=== PATIENT | female | born 1945 | race Caucasian/White ===

== ENCOUNTER 2017-08-05 05:32 | Emergency (ER) | payer MEDICARE ==
[~2017-08-05] VITALS: Ht 167.6 cm; Wt 114.8 kg
[~2017-08-05 05:32] MED LIST: MECL-111 PO; METO25TA6 PO
[2017-08-05 06:26] LABS: BASOPHILS % (AUTO) 0.2 % (0-1); EOSINOPHILS # (AUTO) 0.2 X10'3 (0-0.9); EOSINOPHILS % (AUTO) 3.6 % (0-6); HEMATOCRIT 39.2 % (35.0-45.0); HEMOGLOBIN 13.3 g/dl (12.0-16.0); LYMPHOCYTES # (AUTO) 1.5 X10'3 (1.1-4.8); LYMPHOCYTES % (AUTO) 22.4 % (21-51); MEAN CORPUSCULAR HEMOGLOBIN 31.1 PG (27.0-31.0); MEAN CORPUSCULAR VOLUME 91.5 FL (78-98); MEAN PLATELET VOLUME 9.6 FL (7.4-10.4); MONOCYTES # (AUTO) 0.4 X10'3 (0-0.9); MONOCYTES % (AUTO) 5.9 % (2-12); NEUTROPHILS # (AUTO) 4.7 X10'3 (1.8-7.7); NEUTROPHILS % (AUTO) 67.9 % (42-75); PLATELET COUNT 162 X10'3 (140-440); RED BLOOD COUNT 4.29 X10'6 (4.20-5.60); RED CELL DISTRIBUTION WIDTH 14.2 % (11.5-14.5); WHITE BLOOD COUNT 6.9 X10'3 (4.5-11.0)
[2017-08-05 06:32] LABS: PARTIAL THROMBOPLASTIN TIME 26 SECONDS (22-32); PROTHROMBIN TIME 10.5 SECONDS (9.0-12.0)
[2017-08-05 06:51] LABS: ALANINE AMINOTRANSFERASE 26 U/L (12-78); ALBUMIN 3.6 G/DL (3.4-5.0); ALBUMIN/GLOBULIN RATIO 0.9 (1.1-1.5); ALKALINE PHOSPHATASE 81 IU/L (46-116); ANION GAP 11 (8-16); ASPARTATE AMINO TRANSFERASE 16 U/L (10-37); BILIRUBIN,TOTAL 0.4 MG/DL (0.1-1.0); CALCIUM 9.5 MG/DL (8.5-10.1); CHLORIDE 105 MMOL/L (99-107); CREATININE 0.77 MG/DL (0.40-0.90); GLUCOSE 136 MG/DL (70-104); POTASSIUM 4.1 MMOL/L (3.5-5.1); SODIUM 142 MMOL/L (135-145); TOTAL CARBON DIOXIDE 26.1 MMOL/L (24-32); TOTAL PROTEIN 7.4 G/DL (6.4-8.2); eGFR 74 ML/MIN
[2017-08-05 06:57] LABS: BLOOD UREA NITROGEN 17 MG/DL (7-18); BUN/CREATININE RATIO 22.1 (6.6-38.0)
[2017-08-05] MEDS ORDERED: famotidine/PF 10 mg/ml inj IV ONE (07:20)
[2017-08-05 08:38] VITALS: BP 145/79
== END 2017-08-05 08:40 | disposition home or self-care (01) ==
LOC: ER 05:33
DX: R00.2 Palpitations (principal); R07.89 Other chest pain; R10.13 Epigastric pain; I48.91 Unspecified atrial fibrillation; I10 Essential (primary) hypertension; E11.9 Type 2 diabetes mellitus without complications; Z90.49 Acquired absence of other specified parts of digestive tract; Z87.891 Personal history of nicotine dependence; Z88.2 Allergy status to sulfonamides; Z91.018 Allergy to other foods; Z79.899 Other long term (current) drug therapy
CPT/HCPCS: 36415; 71045; 80053; 84484; 85025; 85610; 85730; 93005; 96374; 99285; A6258; J3490

== ENCOUNTER 2019-07-06 08:31 | Inpatient (IN) | payer MEDICARE ==
[~2019-07-06] VITALS: Ht 167.6 cm; Wt 138.6 kg
[~2019-07-06 08:31] MED LIST changes: +CEPH-571 PO; +FURO-150 PO; -MECL-111 PO; +MECL-159 PO
[2019-07-06 09:52] LABS: BASOPHILS % (AUTO) 0.6 % (0-1); EOSINOPHILS # (AUTO) 0.1 X10'3 (0-0.9); EOSINOPHILS % (AUTO) 1.9 % (0-6); HEMATOCRIT 38.8 % (35.0-45.0); HEMOGLOBIN 12.6 g/dl (12.0-16.0); LYMPHOCYTES # (AUTO) 1.3 X10'3 (1.1-4.8); LYMPHOCYTES % (AUTO) 17.4 % (21-51); MEAN CORPUSCULAR HEMOGLOBIN 30.7 PG (27.0-31.0); MEAN CORPUSCULAR HGB CONC 32.5 g/dL (33.0-36.5); MEAN CORPUSCULAR VOLUME 94.5 FL (78-98); MEAN PLATELET VOLUME 9.7 FL (7.4-10.4); MONOCYTES # (AUTO) 0.4 X10'3 (0-0.9); MONOCYTES % (AUTO) 5.7 % (2-12); NEUTROPHILS # (AUTO) 5.5 X10'3 (1.8-7.7); NEUTROPHILS % (AUTO) 74.4 % (42-75); PLATELET COUNT 163 X10'3 (140-440); RED BLOOD COUNT 4.11 X10'6 (4.20-5.60); RED CELL DISTRIBUTION WIDTH 14.6 % (11.5-14.5); WHITE BLOOD COUNT 7.4 X10'3 (4.5-11.0)
[2019-07-06 10:09] LABS: ALANINE AMINOTRANSFERASE 25 U/L (12-78); ALBUMIN 3.7 G/DL (3.4-5.0); ALBUMIN/GLOBULIN RATIO 1.1 (1.1-1.5); ALKALINE PHOSPHATASE 86 IU/L (46-116); ANION GAP 7 (8-16); ASPARTATE AMINO TRANSFERASE 19 U/L (10-37); BILIRUBIN,TOTAL 0.4 MG/DL (0.1-1.0); BLOOD UREA NITROGEN 15 MG/DL (7-18); CALCIUM 9.1 MG/DL (8.5-10.1); CHLORIDE 105 MMOL/L (99-107); CREATININE 0.79 MG/DL (0.40-0.90); GLUCOSE 134 MG/DL (70-104); POTASSIUM 4.5 MMOL/L (3.5-5.1); SODIUM 140 MMOL/L (135-145); TOTAL CARBON DIOXIDE 28.1 MMOL/L (24-32); TOTAL PROTEIN 7.2 G/DL (6.4-8.2); eGFR 71 ML/MIN
[2019-07-06] MEDS ORDERED: normal saline 1000ml 1,000 ML IV SCH (11:09)
[2019-07-06] MEDS ORDERED: metoprolol tartrate 1mg/ml inj IV PRN (11:10)
[2019-07-06] MEDS ORDERED: aminophylline 250mg/10ml inj. IV PRN (11:10)
[2019-07-06] MEDS ORDERED: regadenoson 0.4mg/5ml syringe IV PRN (11:10)
[2019-07-06] MEDS ORDERED: magnesium hydroxide 30ml (MOM) UD suspension PO PRN (11:10)
[2019-07-06] MEDS ORDERED: nitroGLYCERIN 0.4mg SUBLingual tab SL PRN (11:10)
[2019-07-06] MEDS ORDERED: mag hydrox/Alum hydrox/simeth 30ml oral suspension PO PRN (11:10)
[2019-07-06] MEDS ORDERED: magnesium 2GM in 50ml NS 50 ML IV PRN (11:10)
[2019-07-06] MEDS ORDERED: morphine 2 MG/ML inj. syringe IV PRN ×2 (11:10)
[2019-07-06] MEDS ORDERED: acetaminophen 325mg tablet PO PRN (11:10)
[2019-07-06] MEDS ORDERED: potassium Cl 20 mEq SR tablet PO PRN ×2 (11:10)
[2019-07-06] MEDS ORDERED: bisacodyl 10mg suppository rectal RC PRN (11:10)
[2019-07-06] MEDS ORDERED: metoclopramide 5 mg/ml inj IV PRN (11:10)
[2019-07-06] MEDS ORDERED: potassium CL 10mEq/100ml bag 100 ML IV PRN ×2 (11:10)
[2019-07-06] MEDS ORDERED: ondansetron/PF 4mg/2ml inj IV PRN (11:10)
[2019-07-06] MEDS ORDERED: magnesium 4gm in 100ml NS 100 ML IV PRN (11:10)
[2019-07-06] MEDS ORDERED: magnesium Cl slow-release 64mg tablet PO PRN (11:10)
[2019-07-06] MEDS ORDERED: BENA10TA74 PO (11:25)
[2019-07-06 11:39] LABS: PHOSPHORUS 3.5 MG/DL (2.3-4.5)
[2019-07-06 13:30] VITALS: BP 153/78
[2019-07-06 15:00] VITALS: BP 135/68
--- NOTE | 2019-07-06 17:35 | NUR ---
Arrived from ED at 1330. Pt. is asymptomatic for pain and for chest pain.
[2019-07-06 19:00] VITALS: BP 135/61
[2019-07-06] MEDS: K and/or MAG REPLACEMENT MC SCH (20:00)
[2019-07-06] MEDS ORDERED: temazepam 15mg capsule PO PRN (21:00)
[2019-07-06] MEDS: furosemide 40mg/4ml inj IV SCH (21:05)
[2019-07-06] MEDS: heparin, porcine 5000 units/ml vial SQ SCH (21:06)
[2019-07-07] VITALS (13 sets, daily range): BP systolic 107–161; BP diastolic 58–88
[2019-07-07 06:11] LABS: HEMATOCRIT 37.8 % (35.0-45.0); HEMOGLOBIN 12.4 g/dl (12.0-16.0); MEAN CORPUSCULAR HEMOGLOBIN 30.8 PG (27.0-31.0); MEAN CORPUSCULAR HGB CONC 32.8 g/dL (33.0-36.5); MEAN CORPUSCULAR VOLUME 93.7 FL (78-98); MEAN PLATELET VOLUME 9.7 FL (7.4-10.4); PLATELET COUNT 158 X10'3 (140-440); RED BLOOD COUNT 4.04 X10'6 (4.20-5.60); RED CELL DISTRIBUTION WIDTH 14.4 % (11.5-14.5)
[2019-07-07 06:17] LABS: ALBUMIN 3.5 G/DL (3.4-5.0); ANION GAP 9 (8-16); BLOOD UREA NITROGEN 16 MG/DL (7-18); CHLORIDE 105 MMOL/L (99-107); CHOL/HDL RATIO 4.7 (0.00-4.99); CHOLESTEROL 178 MG/DL (0-200); GLUCOSE 122 MG/DL (70-104); HDL CHOLESTEROL 38 MG/DL (35-60); LDL CHOLESTEROL 111 MG/DL (50-100); MAGNESIUM 2.1 MG/DL (1.5-2.4); PHOSPHORUS 3.5 MG/DL (2.3-4.5); POTASSIUM 3.8 MMOL/L (3.5-5.1); SODIUM 142 MMOL/L (135-145); TOTAL CARBON DIOXIDE 27.7 MMOL/L (24-32); TRIGLYCERIDES 191 MG/DL (20-135); eGFR 70 ML/MIN
--- NOTE | 2019-07-07 07:00 | NUR ---
Problems reprioritized. Patient report given Agustín, questions answered & plan of care reviewed with .
[2019-07-07] MEDS ORDERED: lisinopril 10 MG tablet PO SCH (08:00)
[2019-07-07] MEDS: heparin, porcine 5000 units/ml vial SQ SCH (08:00)
[2019-07-07] MEDS: K and/or MAG REPLACEMENT MC SCH (08:00)
[2019-07-07] MEDS: furosemide 40mg/4ml inj IV SCH (08:00)
[2019-07-07] MEDS ORDERED: ATOR40TA PO (13:27)
[2019-07-07] MEDS ORDERED: FURO-150 PO (13:27)
--- NOTE | 2019-07-07 14:57 | NUR ---
Patient discharged home stable and appropriate with family. IV and equipment monitor phototypesetting removed. All belongings taken from room. New prescriptions sent to preferred pharmacy, patient aware of next due doses of medications. Discharge instructions given and reviewed with patient, all questions answered.
[2019-07-08] MEDS ORDERED: atorvastatin 20mg tablet PO SCH (08:00)
--- NOTE | 2019-07-10 15:44 | NUR ---
Case Management DC follow up: Spoke to pt via telephone. s/p: CP Reports: "Feeling good" Denies: SOB, resp distress, acute/persistent CP, LIMON, blurry vision, N/V, emergent general pain, abd tenderness or distention, vertigo, syncope, fever, unexplained bruising, bleeding. Back to baseline. Verbalizes understanding of s/s that would warrant 9-11/ER visit for further evaluation. 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 taking current Rx, Benazepril as ordered, no ase noted. Acknowledges need to follow-up/keep appts w/PCP/[facility], [facility] Inspector/[facility]ara. No one in office at either facility, pt states will call again Saturday07/13/19 to schedule follow ups. Questions answered, needs met at [place]. No further questions at this time.
== END 2019-07-07 14:50 | disposition home or self-care (01) | DRG 311 ==
LOC: ER 08:31 → ED HOLD 11:32 → PCU 3S 13:32
PROVIDERS: ADMIT Family Medicine; ATTEND Family Medicine
DX: I20.9 Angina pectoris, unspecified (principal); I48.92 Unspecified atrial flutter; I48.0 Paroxysmal atrial fibrillation; F41.1 Generalized anxiety disorder; E11.9 Type 2 diabetes mellitus without complications; I10 Essential (primary) hypertension; Z88.2 Allergy status to sulfonamides; Z88.8 Allergy status to other drugs, medicaments and biological substances; Z91.018 Allergy to other foods; Z90.49 Acquired absence of other specified parts of digestive tract
CPT/HCPCS: 36415; 71045; 78452; 80048; 80053; 80061; 83735; 83880; 84100; 84443; 84484; 85025; 85027; 87081; 93005; 93017; 93306; 99285; A9500; G0378; J0280; J1644; J1940; J2785; J7030